=== PATIENT | female | born 1950 | race Caucasian/White ===

== ENCOUNTER 2016-11-04 13:43 | Emergency (ER) | payer MEDICARE, OTHER ==
[2016-11-04 14:38] LABS: BASO % 0.3 % (0.1-1.2); EOS # 0.1 10_X3_uL (0.0-0.4); EOS % 0.8 % (0.7-5.8); GRAN # 5.8 10_X3_uL (1.6-6.1); GRAN % 47.1 % (34.0-71.1); HEMATOCRIT 40.7 % (34-45); HEMOGLOBIN 12.9 g/dL (11.2-15.7); LYMPH # 5.6 10_X3_uL (1.2-3.7); LYMPH % 45.5 % (19.3-51.7); MEAN CORPUSCULAR HEMOGLOBIN 30.4 pg (27.0-33.0); MEAN CORPUSCULAR HGB CONC 31.7 g/dL (32.0-36.0); MONO # 0.8 10_X3_uL (0.2-0.9); MONO % 6.3 % (4.7-12.5); PLATELET COUNT 329 x10_3/uL (182-369); RED BLOOD COUNT 4.24 x10_6/uL (3.9-5.2); RED CELL DISTRIBUTION WIDTH 14.2 % (11.7-14.4); WHITE BLOOD COUNT 12.3 x10_3/uL (4.0-10.0)
[2016-11-04 14:57] LABS: ALBUMIN 3.6 gm/dL (3.4-5.0); ALKALINE PHOSPHATASE 65 U/L (50-136); ALT/SGPT 10 U/L (3.5-33.9); AST/SGOT 16 U/L (7.04-26.96); BLOOD UREA NITROGEN 18 mg/dL (7-18); CALCIUM 8.9 mg/dL (8.7-10.7); CARBON DIOXIDE 21 mmol/L (21-32); CREATINE KINASE 28 U/L (21-215); CREATININE 0.8 mg/dL (0.6-1.3); GLUCOSE,RANDOM 101 mg/dL (70-99); SODIUM 133 mmol/L (136-145); TOTAL PROTEIN 6.5 gm/dL (6.4-8.2)
[2016-11-04 15:00] LABS: BILIRUBIN,TOTAL < 0.15 mg/dL (0.0-1.0)
[2016-11-04 15:01] LABS: POTASSIUM 5.2 mmol/L (3.5-5.1)
[2016-11-04 15:44] LABS: PARTIAL THROMBOPLASTIN TIME 25.8 SECONDS (21.8-28.4); PROTHROMBIN TIME (PATIENT) 10.2 SECONDS (9.6-10.8)
== END 2016-11-04 18:35 | disposition short-term general hospital (02) ==
LOC: ER 13:43
PROVIDERS: Family Medicine
DX: I45.9 Conduction disorder, unspecified (principal); R00.1 Bradycardia, unspecified; I10 Essential (primary) hypertension; E11.9 Type 2 diabetes mellitus without complications; J44.9 Chronic obstructive pulmonary disease, unspecified; Z79.899 Other long term (current) drug therapy; Z79.82 Long term (current) use of aspirin
CPT/HCPCS: 36415; 71010; 80053; 82550; 82553; 85025; 85610; 85730; 93005; 96374; 99070; 99284; 99285-25